=== PATIENT | male | born 1940 | race Caucasian/White ===

== ENCOUNTER 2020-03-11 11:27 | Inpatient (IN) | payer OTHER, MEDICARE, SELFPAY ==
[2020-03-11] VITALS (9 sets, daily range): BP systolic 110–143; BP diastolic 61–80; PULSE 64–79; RESP 16–27; TEMP 36.3–36.7; O2SAT 89–95; BMI 30.9
--- NOTE | 2020-03-11 11:59 | XRR_ITS ---
PROCEDURE INFORMATION: Exam: XR Chest, 1 View Exam date and time: 03/11/2020 12:30 PM Age: 79 years old Clinical indication: Condition or disease; Other: CVA TECHNIQUE: Imaging protocol: XR of the chest Views: 1 view. COMPARISON: CR Chest 1 [place] [id number] 04/10/2019 5:21 AM FINDINGS: Lungs: COPD and interstitial prominence. Pleural space: Incomplete visualization of the right costophrenic angle. Pleural thickening without significant pleural effusion. Heart/Mediastinum: Valve replacement. No cardiomegaly. Bones/joints: Osteopenia and mild degenerative change. Median sternotomy. Other: Atrioventricular pacemaker. XR/XR chest 1V portable [id number] IMPRESSION: COPD, interstitial prominence, and pleural thickening.
--- NOTE | 2020-03-11 11:59 | CT_ITS ---
WS: [id number] CT HEAD NONCONTRAST HISTORY: cva TECHNIQUE: Contiguous axial imaging performed through the brain in 2.5 mm imaging. Bone and soft tiss ue windows. Sagittal and coronal reformats reviewed. All CT scans at [facility] use at ast one of these dose optimization techniques: automated exposure control; mA and/or kV adjustment pe r patient size (includes targeted exams where dose is matched to clinical indication); or iterative r econstruction. DLP: 1029.34 mGy.cm COMPARISON: 03/05/2018 No acute intracranial hemorrhage, midline shift or mass effect. Mild atrophy and mild chronic microvascular ischemic disease. Ventricles: Normal size with no hydrocephalus. Paranasal sinuses: As visualized are clear. Mastoid air cells: Well pneumatized. Calvarium and scalp: Skull is intact with no soft tissue edema or swelling. CT/CT head wo con* [id number] IMPRESSION: 1. No acute intracranial hemorrhage or edema. 2. Mild atrophy and mild chronic microvascular ischemic disease.
--- NOTE | 2020-03-11 12:11 | ECG_ITS ---
[facility] Test Date: 2020-03-11 Pat Name: Liu Murrell Department: Room: Gender: Male [employer] Commander: Irene : 1940 Requested By: Krysta Peraza Order Number: [id number] Bret MD: Louise Bernard M.D. Measurements Intervals [place] Rate: 71 P: 94 [place]: 202 QRS: -54 QRSD: 186 T: 108 QT: 453 QTc: 493 Interpretive Statements ELECTRONIC VENTRICULAR PACEMAKER MARKED ST ELEVATION, CONSIDER LATERAL INJURY [MARKED ST ELEVATION W/O NORMALLY INFLECTED T WAVE IN I/aVL/V5/V6] ACUTE IL Compared to ECG 04/10/2019 04:46:12 ST (T wave) deviation now present Myocardial infarct finding now present Electronically Signed On 03-11-2020 21:42:05 CDT by Louise Bernard M.D. [email or web address] [email or web address]/[id number]
--- NOTE | 2020-03-11 12:15 | ED_ITS ---
HPI - Neuro Symptoms/Deficit General: Chief Complaint: Neuro Symptoms/Deficit Stated Complaint: poss stroke last week Time Seen by Provider: 03/11/20 11:59 Source: patient Mode of arrival: ambulatory Limitations: no limitations History of Present Illness: HPI Narrative: 79-year-old male who states over the last week he has had some difficulty with his vision along with left-sided numbness and some weakness in his left leg. He states he is also had episodes of diaphoresis. He states his symptoms currently are better. Denies any worsening improving factors. He denies any pain currently. Associated symptoms: Deny chest pain, nausea or vomiting Review of Systems Const: Denies: fever(s), chills, body aches or change in appetite Eyes: Denies: blurry vision or eye discomfort ENMT: Denies: throat pain or dental pain Card: Denies: chest pain Resp: Denies: dyspnea GI: Denies: abdominal pain, nausea, vomiting or diarrhea : Denies: dysuria Musc: Denies: neck pain or back pain Skin/Breast: Denies: rash Neuro: Reports: weakness in extremities Psych: Denies: depression Elvin/Lymph: Denies: easy bruising All/Imm: Denies: urticaria Physical Exam Const: COMMON NORMALS: no acute distress, patient oriented x3 and healthy appearing HENMT: COMMON NORMALS: normocephalic and atraumatic HEAD & SCALP: normocephalic and atraumatic Eye: COMMON NORMALS: Equal, round and reactive pupils present and EOMs intact bilaterally PUPIL: Yes Equal, round and reactive pupils present Neck/C-Spine: COMMON NORMALS: full ROM and supple Chest: COMMONS NORMALS: normal inspection of the chest and normal palpation of entire chest wall Resp: COMMON NORMALS: normal respiratory effort, No retractions, No use of accessory muscles and clear to auscultation bilaterally AUSCULTATION: clear to auscultation bilaterally Cardio: COMMON NORMALS: regular rate, regular rhythm and No murmurs present (Cardio) RATE: regular rate RHYTHM: regular rhythm GI: COMMON NORMALS: Normal to inspection, nondistended, normoactive bowel sounds present, Soft to palpation, non-tender and no masses PALPATION: Yes Soft to palpation Extremity: COMMON NORMALS: normal to inspection and full ROM Neuro: COMMON NORMALS: patient oriented x3, moves all extremities and no focal motor deficits Psych: COMMON NORMALS: mental status grossly normal, Normal thought process present and cooperative THOUGHT PROCESS: Normal thought process present Skin: COMMON NORMALS: no rashes or lesions noted and no wounds GENERAL SKIN EXAM: no rashes or lesions noted Course Vital Signs: Vital signs: Vital Signs Temperature 98.0 F 03/11/20 11:49 Pulse Rate 68 03/11/20 15:39 Respiratory Rate 19 H 03/11/20 15:39 Blood Pressure 120/77 03/11/20 15:39 Pulse Oximetry 92 03/11/20 15:39 MDM - Neuro Symptoms/Deficit MDM Narrative: Medical decision making narrative: Patient presents here with shortness of breath and is requiring 3 L of oxygen here to keep his saturation above 90%. Patient also has very vague neuro complaints. Patient CT chest along with CT head are normal. I spoke to hospitalist Dr. Morales who is admitting. Will COVID test. Patient has no signs of pneumonia. Lab Data: Labs: Lab Results 03/11/20 03/11/20 03/11/20 Range/Units 12:08 12:08 12:08 WBC 9.8 (4.0-10.0) 10^3/ uL RBC 5.95 H (4.1-5.3) 10^6/u L Hgb 16.7 H (11.7-16.6) g/dL Hct 52.8 H (42.0-52.0) % MCV 88.7 (80-94) fL MCH 28.1 (28.0-34.0) pg MCHC 31.6 (30.0-36.0) g/dL RDW 13.7 (12.1-15.1) % Plt Count 299 (130-400) 10^3/c mm MPV 10.2 (7.4-10.4) fL Neut % (Auto) 61.4 % Lymph % (Auto) 27.2 % Gordon % (Auto) 8.6 % Eos % (Auto) 2.1 % Baso % (Auto) 0.5 % Neut # (Auto) 6.0 (1.8-7.7) 10^3/u L Lymph # (Auto) 2.7 (0.8-4.8) 10^3/u L Gordon # (Auto) 0.9 (0.2-0.9) 10^3/u L Eos # (Auto) 0.2 (0.0-0.8) 10^3/u L Baso # (Auto) 0.1 (0.0-0.1) 10^3/u L Nucleated RBC % (a uto) 0 % Nucleated RBCs # 0.0 /100WBC PT 30.70 H (10.5-13.3) SECO NDS INR 2.82 H (0.8-1.2) Sodium 137 (136-145) mmol/L Potassium 4.6 (3.5-5.1) mmol/L Chloride 98 (98-107) mmol/L Carbon Dioxide 28 (22-29) mmol/L Anion Gap 15.6 (5-19) BUN 20 (8-23) mg/dL Creatinine 1.5 H (0.7-1.2) mg/dL Glucose 87 (65-115) mg/dL Calculated Osmolal ity 280 L (285-295) mOsm/k g Calcium 9.7 (8.5-10.5) mg/dL Total Bilirubin 0.7 (0.15-1.2) mg/dL AST 27 (0-40) U/L ALT 17 (0-41) U/L Alkaline Phosphata se 68 (40-130) IU/L Troponin T Baselin e (0-15) ng/L Troponin T 120 Min sam (0-15) ng/L Delta Troponin T (0-10) ABS# Total Protein 7.6 (6.6-8.7) g/dL Albumin 4.4 (3.5-5.2) g/dL Globulin 3.2 (1.3-4.6) g/dL Urine Color (Yellow) Urine Appearance (CLEAR) Urine pH (5-7) Ur Specific Gravit y (1.005-1.030) Urine Protein (Negative) Urine Glucose (UA) (Normal) Urine Ketones (Negative) Urine Blood (Negative) Urine Nitrate (Negative) Urine Bilirubin (NEGATIVE) Urine Urobilinogen (Negative) mg/dL Ur Leukocyte Reyna ase (Negative) Urine RBC (0-2) /hpf Urine WBC (0-5) /hpf Ur Squamous Epith Cells (0-5) Amorphous Sediment Urine Bacteria (NONE) 03/11/20 03/11/20 03/11/20 Range/Units 12:08 12:55 14:09 WBC (4.0-10.0) 10^3/ uL RBC (4.1-5.3) 10^6/u L Hgb (11.7-16.6) g/dL Hct (42.0-52.0) % MCV (80-94) fL MCH (28.0-34.0) pg MCHC (30.0-36.0) g/dL RDW (12.1-15.1) % Plt Count (130-400) 10^3/c mm MPV (7.4-10.4) fL Neut % (Auto) % Lymph % (Auto) % Gordon % (Auto) % Eos % (Auto) % Baso % (Auto) % Neut # (Auto) (1.8-7.7) 10^3/u L Lymph # (Auto) (0.8-4.8) 10^3/u L Gordon # (Auto) (0.2-0.9) 10^3/u L Eos # (Auto) (0.0-0.8) 10^3/u L Baso # (Auto) (0.0-0.1) 10^3/u L Nucleated RBC % (a uto) % Nucleated RBCs # /100WBC PT (10.5-13.3) SECO NDS INR (0.8-1.2) Sodium (136-145) mmol/L Potassium (3.5-5.1) mmol/L Chloride (98-107) mmol/L Carbon Dioxide (22-29) mmol/L Anion Gap (5-19) BUN (8-23) mg/dL Creatinine (0.7-1.2) mg/dL Glucose (65-115) mg/dL Calculated Osmolal ity (285-295) mOsm/k g Calcium (8.5-10.5) mg/dL Total Bilirubin (0.15-1.2) mg/dL AST (0-40) U/L ALT (0-41) U/L Alkaline Phosphata se (40-130) IU/L Troponin T Baselin e 16 H (0-15) ng/L Troponin T 120 Min sam 15.99 H (0-15) ng/L Delta Troponin T -0.01 L (0-10) ABS# Total Protein (6.6-8.7) g/dL Albumin (3.5-5.2) g/dL Globulin (1.3-4.6) g/dL Urine Color Yellow (Yellow) Urine Appearance Clear (CLEAR) Urine pH 6.0 (5-7) Ur Specific Gravit y 1.010 (1.005-1.030) Urine Protein Neg (Negative) Urine Glucose (UA) Norm (Normal) Urine Ketones Negative (Negative) Urine Blood 2+ H (Negative) Urine Nitrate Negative (Negative) Urine Bilirubin Neg (NEGATIVE) Urine Urobilinogen Norm (Negative) mg/dL Ur Leukocyte Reyna ase Negative (Negative) Urine RBC 0-4 H (0-2) /hpf Urine WBC Rare (0-5) /hpf Ur Squamous Epith Cells 0-4 H (0-5) Amorphous Sediment Not Reportable Urine Bacteria Trace (NONE) Imaging Data^: CXR: Attestation: I personally reviewed and interpreted this imaging study as follows: Radiologist's impression: [place] [address] XRay Report Signed Patient: Liu Murrell Unit #: [id number] : 1940 Age/Sex: 79 / M ADM Date: 03/11/20 Loc: ER Room/Bed: Attending Dr: Ordering Provider/Ordering MD: Krysta Peraza MD Date of Service: 03/11/20 Procedure(s): XR chest 1V portable [id number] Accession Number(s): [id number] Report Number: [id number] PROCEDURE INFORMATION: Exam: XR Chest, 1 View Exam date and time: 03/11/2020 12:30 PM Age: 79 years old Clinical indication: Condition or disease; Other: CVA TECHNIQUE: Imaging protocol: XR of the chest Views: 1 view. COMPARISON: CR Chest 1 [place] [id number] 04/10/2019 5:21 AM FINDINGS: Lungs: COPD and interstitial prominence. Pleural space: Incomplete visualization of the right costophrenic angle. Pleural thickening without significant pleural effusion. Heart/Mediastinum: Valve replacement. No cardiomegaly. Bones/joints: Osteopenia and mild degenerative change. Median sternotomy. Other: Atrioventricular pacemaker. XR/XR chest 1V portable [id number] IMPRESSION: COPD, interstitial prominence, and pleural thickening. CT Head: Attestation: I personally reviewed and interpreted this imaging study as follows: Radiologist's impression: [address] [address] [address] Scan Report Signed Patient: Liu Murrell Unit #: [id number] : 1940 Age/Sex: 79 / M ADM Date: 03/11/20 Loc: ER Room/Bed: Attending Dr: Ordering Provider/Ordering MD: Krysta Peraza MD Date of Service: 03/11/20 Procedure(s): CT head wo con* [id number] Accession Number(s): [id number] Report Number: [id number] WS: [id number] CT HEAD NONCONTRAST HISTORY: cva TECHNIQUE: Contiguous axial imaging performed through the brain in 2.5 mm imaging. Bone and soft tissue windows. Sagittal and coronal reformats reviewed. All CT scans at [facility] use at least one of these dose optimization techniques: automated exposure control; mA and/or kV adjustment per patient size (includes targeted exams where dose is matched to clinical indication); or iterative reconstruction. DLP: 1029.34 mGy.cm COMPARISON: 03/05/2018 No acute intracranial hemorrhage, midline shift or mass effect. Mild atrophy and mild chronic microvascular ischemic disease. Ventricles: Normal size with no hydrocephalus. Paranasal sinuses: As visualized are clear. Mastoid air cells: Well pneumatized. Calvarium and scalp: Skull is intact with no soft tissue edema or swelling. CT/CT head wo con* [id number] IMPRESSION: 1. No acute intracranial hemorrhage or edema. 2. Mild atrophy and mild chronic microvascular ischemic disease. CT Chest: Radiologist's impression: [address] [address] [address] Scan Report Signed Patient: Liu Murrell Unit #: [id number] : 1940 Age/Sex: 79 / M ADM Date: 03/11/20 Loc: ER Room/Bed: Attending Dr: Ordering Provider/Ordering MD: Krysta Peraza MD Date of Service: 03/11/20 Procedure(s): CT angio chest PE protcl [id number] Accession Number(s): [id number] Report Number: [id number] WS: [id number] CT CHEST ANGIOGRAPHY WITH REFORMATS HISTORY: sob TECHNIQUE: Contiguous axial images are obtained through the chest during arterial injection of intravenous contrast. Images are reconstructed to evaluate the pulmonary arteries. MIP imaging also reviewed. All CT scans at [facility] use at least one of these dose optimization techniques: automated exposure control; mA and/or kV adjustment per patient size (includes targeted exams where dose is matched to clinical indication); or iterative reconstruction. CONTRAST: Visipaque 320; 95 mL IV. DLP: 1020.82 mGy.cm COMPARISON: 03/11/2018 Very good opacification of the pulmonary arteries. No filling defects or pulmonary embolism. Pulmonary artery size is normal. Mild atherosclerosis aorta with no aneurysm. Moderate enlargement of the LEFT heart chambers. No pericardial or pleural effusion. Chronic emphysema. Partially calcified pleural thickening at the RIGHT lung base was also noted on 03/11/2018. May be related to prior asbestosis exposure. Areas of chronic atelectasis at the lung bases. Prior cholecystectomy. No adrenal mass. Prior median sternotomy with valve replacement aortic valve. Dual lead LEFT pacer. CT/CT angio chest PE protcl [id number] IMPRESSION: 1. No pulmonary embolism. 2. 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 3. Coronary artery calcifications and mild atherosclerosis aorta. 4. Pleural plaque with soft tissue is stable at the RIGHT lower thorax. 5. Prior cholecystectomy. EKG Data^: EKG 1: Attestation: I personally reviewed and interpreted this EKG as follows: EKG interpretation date: 03/11/20 EKG interpretation time: 12:25 Interpretation: paced rhythm no st or t wave abnormalities qrs 186 qtc 475 Discharge Plan Discharge Patient Disposition: Home, Self-Care Clinical Impression: Transient cerebral ischemia, Dyspnea Condition: Stable Prescriptions: No Action aspirin [Adult Low Dose Aspirin] 81 mg tablet,delayed release (DR/EC) 81 mg PO DAILY RF: 0 metoprolol tartrate 100 mg tablet 50 mg PO BID RF: 0 furosemide 40 mg tablet 40 mg PO DAILY RF: 0 warfarin 5 mg tablet 5 mg PO DIRECTED RF: 0 levetiracetam [Keppra] 750 mg tablet 750 mg PO BID RF: 0 Referrals: Dakota Reynoso [Primary Care Provider] - Coding Level of Care Code ED Corporate Meeting Planner for Chg Fwd Exam Comprehensive
[2020-03-11 12:18] LABS: Basophils # 0.1 10^3/uL (0.0-0.1); Basophils % 0.5 %; Eosinophils # 0.2 10^3/uL (0.0-0.8); Eosinophils % 2.1 %; Hematocrit 52.8 % (42.0-52.0); Hemoglobin 16.7 g/dL (11.7-16.6); Lymphocytes # 2.7 10^3/uL (0.8-4.8); Lymphocytes % 27.2 %; Mean Corpuscular HGB Conc 31.6 g/dL (30.0-36.0); Mean Corpuscular Hemoglobin 28.1 pg (28.0-34.0); Mean Corpuscular Volume 88.7 fL (80-94); Mean Platelet Volume 10.2 fL (7.4-10.4); Monocytes # 0.9 10^3/uL (0.2-0.9); Monocytes % 8.6 %; Neutrophils % 61.4 %; Nucleated Red Blood Cells % 0 %; Platelet Count 299 10^3/cmm (130-400); Red Blood Count 5.95 10^6/uL (4.1-5.3); Red Cell Distribution Width 13.7 % (12.1-15.1); White Blood Count 9.8 10^3/uL (4.0-10.0)
[2020-03-11 12:28] LABS: INR 2.82 (0.8-1.2)
[2020-03-11 12:36] LABS: Alanine Aminotransferase 17 U/L (0-41); Albumin Level 4.4 g/dL (3.5-5.2); Alkaline Phosphatase 68 IU/L (40-130); Anion Gap 15.6 (5-19); Blood Urea Nitrogen 20 mg/dL (8-23); Calcium 9.7 mg/dL (8.5-10.5); Carbon Dioxide 28 mmol/L (22-29); Chloride 98 mmol/L (98-107); Globulin 3.2 g/dL (1.3-4.6); Glucose 87 mg/dL (65-115); Osmolality Calculated 280 mOsm/kg (285-295); Potassium 4.6 mmol/L (3.5-5.1); Sodium 137 mmol/L (136-145); Total Bilirubin 0.7 mg/dL (0.15-1.2); Total Protein 7.6 g/dL (6.6-8.7)
[2020-03-11 12:38] LABS: Troponin(5th) Baseline 16 ng/L (0-15)
[2020-03-11 12:39] LABS: Aspartate Amino Transferase 27 U/L (0-40)
--- NOTE | 2020-03-11 13:40 | CT_ITS ---
WS: [id number] CT CHEST ANGIOGRAPHY WITH REFORMATS HISTORY: sob TECHNIQUE: Contiguous axial images are obtained through the chest during arterial injection of intrav enous contrast. Images are reconstructed to evaluate the pulmonary arteries. MIP imaging also reviewe d. All CT scans at [facility] use at least one of these dose optimization techniques: aut omated exposure control; mA and/or kV adjustment per patient size (includes targeted exams where dose is matched to clinical indication); or iterative reconstruction. CONTRAST: Visipaque 320; 95 mL IV. DLP: 1020.82 mGy.cm COMPARISON: 03/11/2018 Very good opacification of the pulmonary arteries. No filling defects or pulmonary embolism. Pulmonar y artery size is normal. Mild atherosclerosis aorta with no aneurysm. Moderate enlargement of the LEF T heart chambers. No pericardial or pleural effusion. Chronic emphysema. Partially calcified pleural thickening at the RIGHT lung base was also noted on 03/11/2018. May be related to prior asbestosis expo sure. Areas of chronic atelectasis at the lung bases. Prior cholecystectomy. No adrenal mass. Prior median sternotomy with valve replacement aortic valve. Dual lead LEFT pacer. CT/CT angio chest PE protcl [id number] IMPRESSION: 1. No pulmonary embolism. 2. 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 3. Coronary artery calcifications and mild atherosclerosis aorta. 4. Pleural plaque with soft tissue is stable at the RIGHT lower thorax. 5. Prior cholecystectomy.
[2020-03-11 13:42] LABS: Add Urine Culture? No; Add Urine Microscopic? YES; Bacteria Urine TRACE; Bilirubin Urine Neg (NEGATIVE); Blood Urine 2+ (Negative); Glucose Urine UA Norm (Normal); Ketones Urine Negative (Negative); Leukocyte Esterase Urine Negative (Negative); Nitrate Urine Negative (Negative); Protein Urine Neg (Negative); RBC Urine 0-4 /hpf (0-2); Squamous Epithelial Cell Urine 0-4 (0-5); Urine Appearance Clear (CLEAR); Urine Color Yellow (Yellow); Urobilinogen Urine Norm (Negative); WBC Urine RARE /hpf (0-5)
--- NOTE | 2020-03-11 14:11 | ECG_ITS ---
[facility] Test Date: 2020-03-11 Pat Name: Liu Murrell Department: Room: Gender: Male Manager Balance: : 1940 Requested By: Krysta Peraza Order Number: [id number] Bret MD: Louise Bernard M.D. Measurements Intervals [place] Rate: 68 P: 56 FL: 226 QRS: -61 QRSD: 180 T: 108 QT: 473 QTc: 505 Interpretive Statements ELECTRONIC VENTRICULAR PACEMAKER ABNORMAL RHYTHM ECG Compared to ECG 03/11/2020 12:25:22 ST (T wave) deviation no longer present Myocardial infarct finding no longer present Electronically Signed On 03-11-2020 21:46:41 CDT by Louise Bernard M.D. [id number]
[2020-03-11] MEDS: hydrocortisone 100 mg/2 mL SDV IVP (14:20)
[2020-03-11] MEDS: diphenhydrAMINE 50 mg/mL SDV 1mL IVP (14:20)
[2020-03-11 14:35] LABS: Troponin 5 2HR 15.99 ng/L (0-15)
[2020-03-11 14:38] LABS: Troponin 5 2HR Delta -0.01 ABS# (0-10)
[2020-03-11] MEDS: iodixanol 320 mg/mL 100mL Btl IV (15:08)
[2020-03-11] MEDS: aspirin 81 mg Chew Tablet 324 MG PO (15:21)
--- NOTE | 2020-03-11 16:15 | P.HP_ITS ---
Providers/Chief Complaint Primary Care Provider: Dakota Reynoso Chief Complaint: poss stroke last week History of Present Illness Liu Murrell is a 79 year old male who presented to the emergency department with history of illness for at least the last week. He has had occasional slurred speech. reports he seems to favor the left side by walking on his heel. She denies that he drags the foot. Patient reports his biggest concern was dizziness when he gets up and moves. She reports he looks like he is short of breath and very fatigued. Although he denies fevers he reports he has had quite a bit of diaphoresis. He reports no significant cough. He has had no chest discomfort. He reports no facial asymmetry, headache, hand weakness. Equivocal numbness in face. He has had some nausea. No vomiting or diarrhea. No ill family contacts. Returned from [place] about a week ago. No recent seizures. In the emergency department he was found to have significant hypoxia, requiring 4 L of oxygen to maintain a saturation slightly above 92%. Review of Systems General: Reports: 10 or more systems reviewed and unremarkable except in HPI and below Const: Reports: diaphoresis; Denies: fever(s) or chills Eyes: Denies: change in vision ENMT: Denies: throat pain Card: Denies: chest pain Resp: Reports: dyspnea; Denies: productive cough or non-productive cough GI: Reports: nausea; Denies: abdominal pain or vomiting : Denies: flank pain Musc: Denies: neck pain Skin/Breast: Denies: rash Neuro: Denies: headache(s) Psych: Denies: anxiety Endo: Denies: polyuria Elvin/Lymph: Denies: easy bruising Medications/Allergies Home Medications Medication Instructions Recorded Confirmed Last Taken Type aspirin 81 mg tablet,delayed 81 mg PO DAILY 10/23/19 03/11/20 03/11/20 History release furosemide 40 mg tablet 40 mg PO DAILY 10/23/19 03/11/20 03/11/20 History levetiracetam 750 mg tablet 750 mg PO BID 10/23/19 03/11/20 03/11/20 History metoprolol tartrate 100 mg tablet 50 mg PO BID tab 10/23/19 03/11/20 03/11/20 History warfarin 5 mg tablet 5 mg PO DIRECTED tab 10/23/19 03/11/20 03/11/20 History Allergies Allergy/AdvReac Type Severity Reaction Status Date / Time No Known Allergies Allergy Verified 03/11/20 14:19 PFSH Acute PFSH: Medical History (Updated 03/11/20 @ 16:40 by Juanjo Morales MD) CHF (congestive heart failure) HTN (hypertension) Seizure disorder Surgical History (Updated 03/11/20 @ 16:33 by Juanjo Morales MD) S/P aortic valve replacement S/P cardiac pacemaker procedure S/P hernia surgery Family History (Updated 03/11/20 @ 16:33 by Juanjo Morales MD) Other CAD (coronary artery disease) Social History (Updated 03/11/20 @ 16:33 by Juanjo Morales MD) Smoking and tobacco status: former smoker Alcohol intake: never Substance/Drug Use: never Vitals/I&O/Wt Last Vital Signs Temp 98.0 F 03/11/20 11:49 Pulse 68 03/11/20 15:39 Resp 19 H 03/11/20 15:39 BP 120/77 03/11/20 15:39 Pulse Ox 92 03/11/20 15:39 Weight last 48 hrs Weight 115.212 kg Physical Exam Narrative: EXAM NARRATIVE: General exam is an adult male, who appears tired but does not appear in any distress HEENT: Pupils equally round. Oropharynx clear. Neurologic: No obvious focal deficits. Cranial nerves II through XII grossly intact. No palmar drift. No facial asymmetry. Neck is supple no lymphadenopathy or thyromegaly Cardiovascular regular rate and rhythm without murmur, no S3 or S4 Lungs clear no wheezing or crackles Abdomen is soft with positive bowel sounds. No obvious organomegaly was deferred Extremities no cyanosis clubbing nor edema. Pulses intact Skin no rash Data : 03/11/20 12:08 03/11/20 12:08 Other data: INR 2.82. ABG demonstrates pH of 7.41, PCO2 40, PO2 78. LFTs are within normal limits. Troponin is 16. Urinalysis demonstrates 0-4 reds, rare whites CTA chest with no evidence of pulmonary embolism, pleural plaque right lower thorax. Head CT no acute Chest x-ray COPD EKG demonstrates paced rhythm, ventricular A&P Assessment and plan (1) Respiratory failure: Consistent with acute hypoxic respiratory failure. Etiology unknown. Check blood culture, influenza a and B, Covid 19 testing. Appropriate precautions to be taken until results known. CTA negative No obvious pneumonia Will initiate doxycycline, nebs secondary to past history of smoking and possible bronchitis. Status: Acute (2) Dizziness: Telemetry. Continue aspirin. Check carotid duplex. May be related to hypoxia Status: Acute (3) Diaphoresis: See investigations above Status: Acute Additional A&P Information History of aortic valve replacement. Currently therapeutic on Coumadin. Goal INR is 2.5-3.5. History of CHF, unspecified type. Check BNP. Check echocardiogram. 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
[2020-03-11 16:22] LABS: ABG PCO2 40.2 mmHg (35-45); ABG PH Result 7.41 (7.35-7.45); Arterial Blood Gas Hematocrit 52.4 % (42-52); Blood Gas Operator Identificat amh; Blood Gas Sample Site Brachial, left; Blood Gas Sample Type Arterial; HCO3 ABG 25.7 mmol/L (22-26); Oxygen Device NC; PO2 ABG 78.2 mmHg (80.0-100.0)
--- NOTE | 2020-03-11 18:11 | ECG_ITS ---
[facility] Test Date: 2020-03-11 Pat Name: Liu Murrell Department: Room: 102 Gender: Male Wellness Nurse Rn: MARY LUONG: 1940 Requested By: Krysta Peraza Order Number: [id number] Bret MD: Louise Bernard M.D. Measurements Intervals [place] Rate: 75 P: 0 CA: 179 QRS: -40 QRSD: 191 T: 154 QT: 480 QTc: 539 Interpretive Statements ELECTRONIC ATRIAL PACEMAKER ELECTRONIC VENTRICULAR PACEMAKER ABNORMAL RHYTHM ECG WARNING: DATA QUALITY MAY AFFECT INTERPRETATION Compared to ECG 03/11/2020 14:17:04 No significant changes Electronically Signed On 03-11-2020 21:47:23 CDT by Louise Bernard M.D. [id number]
[2020-03-11 18:26] LABS: Troponin 5 6HR 14.58 ng/L (0-15)
[2020-03-11 18:34] LABS: Troponin 5 6HR Delta -1.42 ng/L (0-12)
[2020-03-11 18:37] LABS: Influenza A by IFA Negative (Negative); Influenza B by IFA Negative (Negative)
[2020-03-11] MEDS: doxycycline 100 mg Tablet PO (20:17)
--- NOTE | 2020-03-11 20:19 | PC.NURSE ---
Patient arrived from ER at 191 and placed on telemetry. Patient is alert and oriented. Patient oriented to the room and call light is within reach, bed in low position, side rails x2. Will continue to monitor.
[2020-03-11] MEDS: albuterol 8 gm MDI 2 PUFF INHALATION (20:43)
[2020-03-11 23:41] LABS: NT Pro B Type Natriuretic Pept 210 pg/mL (0-450); Thyroid Stimulating Hormone 1.78 uIU/mL (0.27-4.20)
[2020-03-11 23:54] LABS: Add On to Lab Order(s) Added
[2020-03-12] VITALS (13 sets, daily range): BP systolic 113–146; BP diastolic 65–88; PULSE 56–89; RESP 16–26; TEMP 36.3–36.8; O2SAT 93–97
[2020-03-12] MEDS: albuterol 8 gm MDI 2 PUFF INHALATION ×4 (03:14→20:04)
--- NOTE | 2020-03-12 05:34 | PC.NURSE ---
End of shift: Patient has had a uneventful shift. Patient remains alert and oriented. Patient is on 3L nasal cannula. Patient has rested off and on this shift. Will continue to monitor.
[2020-03-12 05:49] LABS: Basophils % 0.3 %; Eosinophils # 0.2 10^3/uL (0.0-0.8); Eosinophils % 1.6 %; Hemoglobin 15.9 g/dL (11.7-16.6); Lymphocytes # 2.6 10^3/uL (0.8-4.8); Lymphocytes % 25.9 %; Mean Corpuscular HGB Conc 31.2 g/dL (30.0-36.0); Mean Corpuscular Volume 89.9 fL (80-94); Mean Platelet Volume 10.2 fL (7.4-10.4); Monocytes % 9.8 %; Neutrophils # 6.2 10^3/uL (1.8-7.7); Neutrophils % 62.2 %; Nucleated Red Blood Cells % 0 %; Platelet Count 278 10^3/cmm (130-400); Red Blood Count 5.67 10^6/uL (4.1-5.3)
[2020-03-12 06:39] LABS: Anion Gap 13.1 (5-19); Blood Urea Nitrogen 23 mg/dL (8-23); Calcium 9.4 mg/dL (8.5-10.5); Carbon Dioxide 26 mmol/L (22-29); Chloride 102 mmol/L (98-107); Glucose 85 mg/dL (65-115); Osmolality Calculated 280 mOsm/kg (285-295); Potassium 4.1 mmol/L (3.5-5.1); Sodium 137 mmol/L (136-145)
[2020-03-12 06:45] LABS: INR 2.92 (0.8-1.2)
--- NOTE | 2020-03-12 07:00 | USCV_ITS ---
Liu Murrell Age: 79 Gender: M : 1940 Exam Date: 03/12/2020 16:41 Ordering Phys: Juanjo Morales MD Technologist: Catarina Medina Exam Location: [facility] [place] Indication: AO VALVE REPLACEMENT BP: 125 / 71 HR: 74 Rhythm: Sinus Technical Quality: Technically difficult study MEASUREMENTS (Male / Female) Normal Values 2D ECHO LV Diastolic Diameter PLAX 3.2 cm 4.2 - 5.9 / 3.9 - 5.3 cm LV Systolic Diameter PLAX 2.2 cm IVS Diastolic Thickness 1.8 cm 0.6 - 1.0 / 0.6 - 0.9 cm IVS Systolic Thickness 1.7 cm LVPW Diastolic Thickness 1.9 cm 0.6 - 1.0 / 0.6 - 0.9 cm LVPW Systolic Thickness 2.1 cm LVOT Diameter 2.0 cm LV Ejection Fraction 2D Teich 59.0 % LA Diameter 4.3 cm LA Width 3.0 cm LA Height 3.2 cm RA Width 3.1 cm RA Height 3.7 cm M-MODE LV Diastolic Diameter MM 5.9 cm 4.2 - 5.9 / 3.9 - 5.3 cm LV Systolic Diameter MM 3.9 cm LV Ejection Fraction MM Teich 62.6 % IVS Diastolic Thickness MM 1.9 cm 0.6 - 1.0 / 0.6 - 0.9 cm IVS Systolic Thickness MM 2.0 cm LVPW Diastolic Thickness MM 1.1 cm 0.6 - 1.0 / 0.6 - 0.9 cm LVPW Systolic Thickness MM 1.7 cm Aortic Annulus Diameter 2.7 cm LA Ao Ratio MM 1.3 MV E Point Septal Separation 2.2 cm DOPPLER AV Peak Velocity 172.0 cm/s LVOT Peak Velocity 115.0 cm/s AV Area Cont Eq vti 2.2 cm squared AV Area Cont Eq pk 2.2 cm squared MV Area PHT 3.3 cm squared Mitral E to A Ratio 1.4 MV E' Velocity 7.0 cm/s Mitral E to MV E' Ratio 16.9 Mitral E to LV E' Lateral Ratio 16.2 Mitral E to LV E' Septal Ratio 17.7 TR Peak Velocity 184.0 cm/s TR Peak Gradient 13.6 mmHg TV Peak E Velocity 80.0 cm/s Right Atrial Pressure 3.0 mmHg Pulmonary Artery Systolic Pressu 16.5 mmHg PV Peak Velocity 88.0 cm/s RV Acceleration Time 0.1 s RV Ejection Time 0.4 s RV AcT/ET 0.2 FINDINGS Left Ventricle Right Ventricle Right Atrium Left Atrium Mitral Valve Aortic Valve Tricuspid Valve Pulmonic Valve Pericardium Aorta CONCLUSIONS Please note that this is a limited study with suboptimal images therefore I am not able to see left ventricle cavity and valvular structures clearly 1-Probably left ventricle function is normal and estimated at 55% 2-Aortic valve is not well-visualized 3-Mitral valve appeared to be opening and closing fine without any significant stenosis or regurgitation 4-Tricuspid and pulmonic valve not well visualized 4-No pericardial effusion noted 5-There are no prior echocardiogram studies to compare. 6-If clinically indicated transesophageal echocardiogram will be a better modality to assess valvular or left ventricle structures Ana Lilia Baker MD (Electronically Signed) Final Date: 12 March 2020 19:08 S
--- NOTE | 2020-03-12 07:00 | USCV_ITS ---
HandyLiu purcell Age: 79 Gender: M : 1940 Exam Date: 03/12/2020 16:52 Ordering Phys: Juanjo Morales MD Technologist: Catarina Medina [place]am [place] [facility] [place]ication: TIA Risk Factors: Previous Vascular Surgery: Right Brachial BP: / Left Brachial BP: / Right Left Velocity (cm/s) Spectral Plaque Velocity (cm/s) Spectral Plaque Syst/Diast Broadening Syst/Diast Broadening 77.00/ 10.80 Prox CCA 99.50 / 13.40 94.30/ 16.20 Mid CCA 107.40/ 21.20 104.40/15.90 Distal CCA 117.40/ 14.50 36.60/ 8.40 Prox ICA 36.30 / 12.40 87.20/ 23.40 Mid ICA 61.80 / 17.40 67.50/ 16.90 Distal ICA 69.80 / 18.90 130.80 ECA 90.60 0.92 ICA/CCA 0.65 Retrograde Vertebral Antegrade 27.10/ 7.30 cm/s 40.70/ 6.50 cm/s Tri Subclavian Tri 67.40 44.30 FINDINGS Comparison: none available. No significant elevation of systolic or diastolic velocities. Minimal bilateral, intimal thickening with no elevation of velocity. Retrograde right vertebral artery. CONCLUSIONS Bilateral ICA stenosis less than 50%. Retrograde right vertebral artery. Consider stenosis proximal to the origin of the vertebral artery. Dr. Ligia Beckwith DO (Electronically Signed) Final Date: 13 March 2020 14:00 S
[2020-03-12] MEDS: doxycycline 100 mg Tablet PO ×2 (08:50→17:32)
[2020-03-12] MEDS: FUROsemide 40 mg Tablet PO (08:50)
[2020-03-12] MEDS: levETIRAcetam 500 mg Tablet 750 MG PO ×2 (08:51→17:32)
[2020-03-12] MEDS: aspirin 81 mg EC Tablet PO (08:52)
[2020-03-12] MEDS: metoprolol tartrate 50 mg Tablet PO ×2 (08:52→17:32)
--- NOTE | 2020-03-12 12:20 | PC.CHAP ---
Pastoral Care Encounter/Spiritual Assessment Type of Contact [] Declined ceramist visit [] Patient/Family/Request visit [] Outpatient visit [] Follow-up visit [] Physician referral [] Code/Alert [] Routine visit [] Staff referral [] Actively dying [] Patient sleeping [] Family support [] [] Out of room [] Palliative care [] [] Receiving care in room [] Pre-surgical visit [] Trauma [] Long length of stay [] ICU visit [x] Other: Covid test Isolatrion Relational/Emotional Strength [] Patient feels connected with others/family/visitors/staff [] Distress [] Loneliness/isolation [] Abandonment Spirituality of Patient [] Person of Rosemary [] Attends Faith of their Rosemary [] Believes in Prayer [] Reads Bible or Temple materials [] There are Spiritual issues to be addressed Money Order Clerk Interventions [] Prayer [] Active listening [] Non-anxious presence [] Spiritual/emotional support [] Crisis/trauma care [] Spiritual counseling [] Bereavement support [] Provided bereavement packet [] Provided Bible/devotional materials [] Provided toy/stuffed animal, coloring book to patient or family member [] Provided Communion [] Anointing/[place] [] Salvation [] Completed spiritual assessment [] Other: Impact on Illness or Injury [] Angry [] Fearful [] Anxious [] Often cries [] Exhaustion [] Unable to work [] Unable to attend protestant [] Unable to walk/stand [] Unable to read [] Unable to drive [] Unable to eat/drink [] Unable to sleep [] Unable to be with family [] Patient intubated [] Other: Summary Covid test Isolatrion Time spent with patient 5 mins
--- NOTE | 2020-03-12 14:19 | XRR_ITS ---
PROCEDURE INFORMATION: Exam: XR Chest, 1 View Exam date and time: 03/12/2020 5:32 PM Age: 79 years old Clinical indication: Other: Hypoxia; Prior surgery; Surgery type: Pacemaker TECHNIQUE: Imaging protocol: XR of the chest Views: 1 view. COMPARISON: CR XR chest 1V portable [id number] 03/11/2020 12:39 PM FINDINGS: Lungs: Mild atelectasis suspected within the left retrocardiac region. Lungs are otherwise well aerated. Pleural space: Unremarkable. No pleural effusion. No pneumothorax. Heart/Mediastinum: cardiac silhouette is enlarged. Prior sternotomy. Vasculature: Pacemaker is present via a left subclavian approach. Bones/joints: See Heart/Mediastinum finding. XR/XR chest 1V portable [id number] IMPRESSION: Mild atelectasis suspected within the left retrocardiac region. Lungs are otherwise well aerated.
--- NOTE | 2020-03-12 14:20 | PM.PN ---
Subjective Subjective: Interval history: Liu reports he feels a lot better. No slurred speech anymore. I was just called by the nurse to see that his blood cultures are growing gram-positive cocci. Medications: Reviewed: Yes Vitals/I&O/Wt Last Vital Signs Temp 97.8 F 03/12/20 10:40 Pulse 60 03/12/20 10:40 Resp 18 03/12/20 10:40 BP 146/88 03/12/20 10:40 Pulse Ox 96 03/12/20 10:40 03/11/20 03/12/20 03/12/20 22:59 06:59 14:59 Intake Total 240 / 240 450 / 690 1600 / 1600 Output Total 200 / 200 800 / 800 Balance 240 / 240 250 / 490 800 / 800 Weight last 48 hrs Weight 115.212 kg Physical Exam Narrative: EXAM NARRATIVE: General exam no apparent distress Cardiovascular regular in rhythm without murmur Lungs clear Abdomen is soft, positive bowel sounds Extremities no cyanosis clubbing or edema Data : 03/12/20 04:49 03/12/20 04:49 Micro: Microbiology 03/11/20 16:50 Blood Culture - Preliminary Blood Gram positive cocci 03/11/20 16:55 Blood Culture - Preliminary Blood Gram positive cocci A&P Assessment and plan (1) Respiratory failure: Consistent with acute hypoxic respiratory failure. Etiology unknown. Influenza a and B are negative. Blood cultures now positive. Covid 19 testing is pending. CTA negative for pulmonary embolism. No obvious pneumonia on x-rays. Doxycycline was initiated upon admission for concern of bronchitis, COPD. Tick panel was ordered at that time secondary to hard to define illness associated with diaphoresis. Tick panel is pending. Status: Acute (2) Dizziness: Resolved. Continue telemetry currently. Awaiting echocardiogram and carotid duplex. Status: Acute (3) Diaphoresis: See investigations above. May be related to bacteremia as he now has gram-positive cocci in his blood. Status: Acute Additional A&P Information History of aortic valve replacement. Currently therapeutic on Coumadin. Goal INR is 2.5-3.5. Now with blood culture positive, concern would exist for endocarditis. Repeat blood culture. Initiate vancomycin. Check sedimentation rate and CRP tomorrow. History of CHF, unspecified type. BNP and troponin not significantly elevated. Awaiting echocardiogram.. History of seizure disorder, continue Keppra Full code Coumadin will suffice for DVT prophylaxis Attestations Medical Necessity Statement*: Needs continued hospitalization for IV antibiotics secondary to bacteremia. 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
[2020-03-12] MEDS: warfarin 5 mg Tablet PO (15:04)
[2020-03-12 15:08] LABS: Coronavirus Lab Test PTC NOT DETECTED
--- NOTE | 2020-03-12 20:52 | PC.NURSE ---
Received report from AMANDA Bergman at [id number]. Patient resting in bed. Vancomycin running as ordered. Patient denies needs or discomforts at this time. No distress observed.
[2020-03-13] VITALS (12 sets, daily range): BP systolic 118–139; BP diastolic 64–78; PULSE 55–70; RESP 17–31; TEMP 36.4–36.8; O2SAT 90–98
[2020-03-13] MEDS: albuterol 8 gm MDI 2 PUFF INHALATION ×4 (02:31→20:12)
[2020-03-13 04:40] LABS: Basophils % 0.3 %; Eosinophils # 0.3 10^3/uL (0.0-0.8); Hematocrit 48.4 % (42.0-52.0); Hemoglobin 14.9 g/dL (11.7-16.6); Lymphocytes # 2.7 10^3/uL (0.8-4.8); Lymphocytes % 31.5 %; Mean Corpuscular HGB Conc 30.8 g/dL (30.0-36.0); Mean Corpuscular Hemoglobin 28.1 pg (28.0-34.0); Mean Corpuscular Volume 91.3 fL (80-94); Mean Platelet Volume 10.4 fL (7.4-10.4); Monocytes # 0.7 10^3/uL (0.2-0.9); Monocytes % 8.5 %; Neutrophils # 4.8 10^3/uL (1.8-7.7); Neutrophils % 56.5 %; Nucleated Red Blood Cells % 0 %; Platelet Count 271 10^3/cmm (130-400); Red Cell Distribution Width 13.9 % (12.1-15.1); White Blood Count 8.6 10^3/uL (4.0-10.0)
[2020-03-13 05:10] LABS: Anion Gap 13.5 (5-19); Blood Urea Nitrogen 26 mg/dL (8-23); Calcium 8.9 mg/dL (8.5-10.5); Carbon Dioxide 30 mmol/L (22-29); Chloride 100 mmol/L (98-107); Glucose 93 mg/dL (65-115); Osmolality Calculated 285 mOsm/kg (285-295); Potassium 4.5 mmol/L (3.5-5.1); Sodium 139 mmol/L (136-145)
[2020-03-13 05:56] LABS: INR 3.05 (0.8-1.2)
--- NOTE | 2020-03-13 08:12 | PM.PN ---
Subjective Subjective: Interval history: Liu reports he is feeling better. No particular concerns today. No slurred speech. No chest pain. Discussed with him in detail his positive blood culture. Medications: Reviewed: Yes Vitals/I&O/Wt Last Vital Signs Temp 97.7 F 03/13/20 07:14 Pulse 61 03/13/20 07:14 Resp 26 H 03/13/20 07:14 BP 139/70 03/13/20 07:14 Pulse Ox 93 03/13/20 07:14 03/12/20 03/13/20 03/13/20 22:59 06:59 14:59 Intake Total 740 / 2340 300 / 2640 Output Total 500 / 1300 525 / 1825 250 / 250 Balance 240 / 1040 -225 / 815 -250 / -250 Weight last 48 hrs Weight 115.212 kg Physical Exam Narrative: EXAM NARRATIVE: General exam no apparent distress Cardiovascular regular in rhythm without murmur Lungs clear Abdomen is soft, positive bowel sounds Extremities no cyanosis clubbing or edema Data : 03/13/20 03:20 03/13/20 03:20 Micro: Microbiology 03/12/20 15:24 Blood Culture - Preliminary Blood SPECIMEN COLLECTED 03/12/20 15:20 Blood Culture - Preliminary Blood SPECIMEN COLLECTED 03/11/20 16:50 Blood Culture - Preliminary Blood Gram positive cocci 03/11/20 16:55 Blood Culture - Preliminary Blood Gram positive cocci Other data: Transthoracic echo poor quality, normal EF, no severe mitral or tricuspid regurgitation. Chest x-ray no obvious infiltrate. Pacemaker noted. Official reading pending. A&P Assessment and plan (1) Respiratory failure: Consistent with acute hypoxic respiratory failure. Likely secondary to bacteremia.. Influenza a and B are negative. Blood cultures now positive, gram-positive organism awaiting ID and sensitivity. Repeat cultures have been drawn. Covid 19 testing is negative. CTA negative for pulmonary embolism. No obvious pneumonia on x-rays. Doxycycline was initiated upon admission for concern of bronchitis, COPD. Tick panel was ordered at that time. With blood cultures becoming positive, at this point doxycycline can be discontinued as tickborne illness is thought to be much less likely. Status: Acute (2) Dizziness: Resolved. Telemetry demonstrates paced rhythm, no other concerns. Echocardiogram results as above. Carotid duplex pending. Status: Acute (3) Diaphoresis: See investigations above. May be related to bacteremia as he now has gram-positive cocci in his blood. Status: Acute Additional A&P Information History of aortic valve replacement. Currently therapeutic on Coumadin. Goal INR is 2.5-3.5. Now with blood culture positive, concern would exist for endocarditis. Repeat blood culture negative so far. Currently on vancomycin. Doxycycline can be discontinued. If repeat cultures remain negative PICC line afternoon or Wednesday and likely discharge home. History of CHF, unspecified type. BNP and troponin not significantly elevated. EF preserved. Presumed history of diastolic heart failure. History of seizure disorder, continue Keppra Full code Coumadin will suffice for DVT prophylaxis. Pharmacy consulted for adjustment of dosing. No need for laboratory tomorrow other than INR. Attestations Medical Necessity Statement*: Needs continued hospitalization for IV antibiotics related to bacteremia. 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
[2020-03-13] MEDS: levETIRAcetam 500 mg Tablet 750 MG PO ×2 (10:25→17:22)
[2020-03-13] MEDS: aspirin 81 mg EC Tablet PO (10:26)
[2020-03-13] MEDS: FUROsemide 40 mg Tablet PO (10:27)
[2020-03-13] MEDS: metoprolol tartrate 50 mg Tablet PO ×2 (10:27→17:22)
[2020-03-13 12:50] LABS: Lyme AB Screen <0.90 index
[2020-03-13] MEDS: warfarin 5 mg Tablet PO (14:27)
--- NOTE | 2020-03-13 19:41 | PC.NURSE ---
Asked patient if he wanted a shower/bath. Patient said he already had one today.
--- NOTE | 2020-03-13 20:04 | PC.NURSE ---
Received report from AMANDA Bergman. Patient resting in bed. Patient verbalized plan for this week in regards to possible PICC placement and discharge on Wednesday. Patient verbalized complete understanding of everything. Patient denies needs or discomforts at this time. Assessment completed as documented. No distress observed.
[2020-03-14] VITALS (13 sets, daily range): BP systolic 136–143; BP diastolic 73–77; PULSE 57–71; RESP 16–28; TEMP 36.3–36.8; O2SAT 90–96
[2020-03-14] MEDS: albuterol 8 gm MDI 2 PUFF INHALATION ×4 (03:15→20:49)
[2020-03-14 04:21] LABS: INR 2.81 (0.8-1.2)
--- NOTE | 2020-03-14 07:54 | PM.PN ---
Subjective Subjective: Interval history: Liu reports he is doing well. There are no particular concerns. He denies any diaphoresis. He reports he feels great. Medications: Reviewed: Yes Vitals/I&O/Wt Last Vital Signs Temp 97.6 F 03/14/20 07:09 Pulse 71 03/14/20 07:09 Resp 26 H 03/14/20 07:09 BP 138/73 03/14/20 07:09 Pulse Ox 90 03/14/20 07:09 03/13/20 03/14/20 03/14/20 22:59 06:59 14:59 Intake Total 240 / 1840 650 / 2490 Output Total 1025 / 1825 550 / 2375 Balance -785 / 15 100 / 115 Physical Exam Narrative: EXAM NARRATIVE: General exam no apparent distress Cardiovascular regular in rhythm without murmur. Click noted Lungs clear Abdomen is soft, positive bowel sounds Extremities no cyanosis clubbing or edema Data : 03/13/20 03:20 03/13/20 03:20 Micro: Microbiology 03/12/20 15:24 Blood Culture - Preliminary Blood NEGATIVE TO DATE 03/12/20 15:20 Blood Culture - Preliminary Blood NEGATIVE TO DATE A&P Assessment and plan (1) Respiratory failure: Consistent with acute hypoxic respiratory failure. Likely secondary to bacteremia.. Influenza a and B are negative. Blood cultures now positive, gram-positive organism awaiting ID and sensitivity. Repeat cultures have been drawn and remain negative. Covid 19 testing is negative. CTA negative for pulmonary embolism. No obvious pneumonia on x-rays. Doxycycline was initiated upon admission for concern of bronchitis, COPD. Tick panel was ordered at that time. With blood cultures becoming positive, at this point doxycycline can be discontinued as tickborne illness is thought to be much less likely. Vancomycin has been continued. Status: Acute (2) Dizziness: Resolved. Telemetry demonstrates paced rhythm, no other concerns. Echocardiogram results as above. Carotid duplex no significant flow-limiting stenosis. Retrograde right vertebral artery is noted and possible stenosis at the origin of this is possible. Status: Acute (3) Diaphoresis: See investigations above. May be related to bacteremia as he now has gram-positive cocci in his blood. This is resolved. Status: Acute Additional A&P Information History of aortic valve replacement. Currently therapeutic on Coumadin. Goal INR is 2.5-3.5. Now with blood culture positive, concern would exist for endocarditis. Repeat blood culture negative so far. Currently on vancomycin. Doxycycline was discontinued. If repeat cultures remain negative PICC line afternoon or Wednesday and likely discharge home. History of CHF, unspecified type. BNP and troponin not significantly elevated. EF preserved. Presumed history of diastolic heart failure. History of seizure disorder, continue Keppra Full code Coumadin will suffice for DVT prophylaxis. Pharmacy consulted for adjustment of dosing. No need for laboratory tomorrow other than INR. Attestations Medical Necessity Statement*: Needs continued hospitalization for IV antibiotics awaiting identification and sensitivity of organism causing bacteremia. 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
[2020-03-14] MEDS: levETIRAcetam 500 mg Tablet 750 MG PO ×2 (09:38→17:21)
[2020-03-14] MEDS: metoprolol tartrate 50 mg Tablet PO ×2 (09:38→17:21)
[2020-03-14] MEDS: aspirin 81 mg EC Tablet PO (09:38)
[2020-03-14] MEDS: FUROsemide 40 mg Tablet PO (09:38)
[2020-03-14] MEDS: warfarin 5 mg Tablet PO (14:32)
--- NOTE | 2020-03-14 16:56 | PC.NURSE ---
Patient has had uneventful shift. Patient has been up ad barak to the side of the bed, chair, and ambulating in the hallway throughout the day. Patient has no complaints of SOB or pain. Blood culture results are still pending. Nurse to continue to monitor.
--- NOTE | 2020-03-14 19:25 | PC.NURSE ---
Received report from AMANDA Lizarraga. Patient resting in bed. Denies pain, discomforts or needs. Discussed plan for PICC line placement in the am for continued antibiotic therapy. Patient verbalized complete understanding of the plan. No distress observed.
[2020-03-14 20:54] LABS: Vancomycin Trough 19.1 ug/mL (10-15)
--- NOTE | 2020-03-14 21:08 | PC.NURSE ---
Current vanc trough of 19.1 reported to Ap in Pharmacy. Received ok to run current dose of Vancomycin.
[2020-03-15] VITALS (10 sets, daily range): BP systolic 142–159; BP diastolic 73–87; PULSE 60–82; RESP 16–29; TEMP 36.4–36.7; O2SAT 90–96
[2020-03-15] MEDS: albuterol 8 gm MDI 2 PUFF INHALATION ×2 (02:40→08:01)
[2020-03-15 03:53] LABS: Basophils % 0.3 %; Eosinophils # 0.3 10^3/uL (0.0-0.8); Eosinophils % 2.9 %; Hematocrit 47.7 % (42.0-52.0); Lymphocytes % 21.7 %; Mean Corpuscular HGB Conc 31.4 g/dL (30.0-36.0); Mean Corpuscular Hemoglobin 28.6 pg (28.0-34.0); Mean Platelet Volume 10.6 fL (7.4-10.4); Monocytes # 0.9 10^3/uL (0.2-0.9); Monocytes % 9.7 %; Neutrophils # 6.02 10^3/uL (1.8-7.7); Neutrophils % 65.1 %; Nucleated Red Blood Cells % 0 %; Platelet Count 265 10^3/cmm (130-400); Red Blood Count 5.24 10^6/uL (4.1-5.3); Red Cell Distribution Width 13.6 % (12.1-15.1); White Blood Count 9.3 10^3/uL (4.0-10.0)
[2020-03-15 04:10] LABS: INR 2.84 (0.8-1.2)
[2020-03-15 04:20] LABS: Anion Gap 12.3 (5-19); Blood Urea Nitrogen 23 mg/dL (8-23); Calcium 9.2 mg/dL (8.5-10.5); Carbon Dioxide 29 mmol/L (22-29); Chloride 101 mmol/L (98-107); Glucose 94 mg/dL (65-115); Osmolality Calculated 282 mOsm/kg (285-295); Potassium 4.3 mmol/L (3.5-5.1); Sodium 138 mmol/L (136-145)
--- NOTE | 2020-03-15 07:48 | PC.NURSE ---
Consent obtained for PICC line.
[2020-03-15] MEDS: FUROsemide 40 mg Tablet PO (09:30)
[2020-03-15] MEDS: metoprolol tartrate 50 mg Tablet PO ×2 (09:30→17:07)
[2020-03-15] MEDS: levETIRAcetam 500 mg Tablet 750 MG PO ×2 (09:30→17:07)
[2020-03-15] MEDS: aspirin 81 mg EC Tablet PO (09:30)
--- NOTE | 2020-03-15 11:04 | PC.NURSE ---
Patient to PACU for PICC line at this time. Patient and VS stable.
--- NOTE | 2020-03-15 11:38 | XR_ITS ---
WS: [id number] PORTABLE CHEST HISTORY: PICC PLACEMENT COMPARISON: 03/12/2020 RIGHT PICC line with tip in the distal SVC is in good position. Hyperexpanded lungs with emphysema. No pneumonia. No pleural effusion or pneumothorax. Cardiac size: Mildly enlarged cardiac silhouette. Mediastinum/Aorta: Moderate atherosclerosis aorta. Prior dual lead LEFT cardiac pacer. No osseous abnormality seen. XR/XR chest 1V portable [id number] IMPRESSION: Satisfactory position RIGHT PICC line.
--- NOTE | 2020-03-15 12:00 | PM.DCS ---
Discharge Providers Date of Admission: 03/11/20 16:46 Date of Discharge: March 15, 2020 Attending Provider at Admission: Juanjo Morales MD Attending Provider at Discharge: Juanjo Morales MD Primary Care Provider: Dakota Reynoso Diagnoses at Discharge Discharge Diagnosis (1) Respiratory failure: Status: Acute (2) Dizziness: Status: Acute (3) Diaphoresis: Status: Acute Reason for Visit Reason for Visit: poss stroke last week Hospital Course Hospital Course: Liu is a 79-year-old white male who presented to the emergency department with diaphoresis, decreased energy, slurred speech. He was noted to have some hypoxia. Initial laboratory studies were not revealing. Transthoracic echo was of poor quality. Carotid duplex no flow-limiting lesions. CTA demonstrated no pulmonary embolism. Head CT nothing acute. Chest x-ray no pneumonia. COVID 19 test ultimately negative. Blood cultures returned positive for gram-positive cocci soon after admission. Blood cultures, all bottles, grew coag negative staph as well as staph epidermidis in both bottles. Patient was placed on vancomycin shortly after blood cultures turn positive, and this was continued throughout his hospital stay. Repeat cultures were negative. Patient's symptomatology all went away. At time of discharge full results of all cultures were pending but patient very much wanted to go home. Sensitivities on both bacteria appear to show excellent sensitivity to vancomycin which was also being used in the hospital so we will arrange for PICC line and discharged home on vancomycin with home health today. Physical Exam Narrative: EXAM NARRATIVE: General exam is no apparent distress Cardiovascular regular rate and rhythm without murmur Lungs clear Abdomen is soft with positive bowel sounds Extremities no cyanosis clubbing or edema Discharge Data Data Completed and Pending: Completed Studies During Hospitalization Category Date Time Status CT angio chest PE protcl [id number] Urge nt Cat Scan 03/11/20 13:[address] head wo con* [id number] Urgent Cat Scan 03/11/20 11:59 Completed XR chest 1V ruy ble [id number] Routine Exams 03/12/20 14:19 Completed XR chest 1V ruy ble [id number] Urgent Exams 03/11/20 11:59 Completed CV carotid duplex BI* [id number] Routine Ultrasound 03/12/20 07:00 Completed CV echo complete* [id number] Routine Ultrasound 03/12/20 07:00 Completed Pending at discharge Category Date Time Status XR chest 1V ruy ble [id number] Routine Exams 03/15/20 11:38 Ordered Blood Culture Sta t Lab 03/11/20 16:50 Results Blood Culture Sta t Lab 03/12/20 15:24 Results Prothrombin Time INR AM LABS Lab 03/16/20 04:00 Ordered Prothrombin Time INR AM LABS Lab 03/17/20 04:00 Ordered Prothrombin Time INR AM LABS Lab 03/18/20 04:00 Ordered Tick Panel Routin e Lab 03/11/20 12:08 Results Labs from last 24 hours 03/15/20 03/15/20 03/15/20 03:18 03:18 03:18 WBC 9.3 RBC 5.24 Hgb 15.0 Hct 47.7 MCV 91.0 MCH 28.6 MCHC 31.4 RDW 13.6 Plt Count 265 MPV 10.6 H Neut % (Auto) 65.1 Lymph % (Auto) 21.7 [place] % (Auto) 9.7 Eos % (Auto) 2.9 Baso % (Auto) 0.3 Neut # (Auto) 6.02 Lymph # (Auto) 2.0 [place] # (Auto) 0.9 Eos # (Auto) 0.3 Baso # (Auto) 0.0 Nucleated RBC % (a uto) 0 Nucleated RBCs # 0.0 PT 30.90 H INR 2.84 H Sodium 138 Potassium 4.3 Chloride 101 Carbon Dioxide 29 Anion Gap 12.3 BUN 23 Creatinine 1.5 H Glucose 94 Calculated Osmolal ity 282 L Calcium 9.2 Vancomycin Trough 03/14/20 19:56 WBC RBC Hgb Hct MCV MCH MCHC RDW Plt Count MPV Neut % (Auto) Lymph % (Auto) [place] % (Auto) Eos % (Auto) Baso % (Auto) Neut # (Auto) Lymph # (Auto) [place] # (Auto) Eos # (Auto) Baso # (Auto) Nucleated RBC % (a uto) Nucleated RBCs # PT INR Sodium Potassium Chloride Carbon Dioxide Anion Gap BUN Creatinine Glucose Calculated Osmolal ity Calcium Vancomycin Trough 19.1 H Vitals: Last Vital Signs Temp 97.7 F 03/15/20 03:38 Pulse 78 03/15/20 08:06 Resp 16 03/15/20 08:04 BP 150/73 03/15/20 08:00 Pulse Ox 94 03/15/20 08:04 Discharge Plan Discharge Patient Disposition: Home Health Service Condition: Stable Prescriptions: New vancomycin in 0.9 % sodium chl 2 gram/500 mL solution 2 gm IVP Q18H 38 Days Qty: 35401 RF: 0 Continued aspirin [Adult Low Dose Aspirin] 81 mg tablet,delayed release (DR/EC) 81 mg PO DAILY RF: 0 metoprolol tartrate 100 mg tablet 50 mg PO BID RF: 0 furosemide 40 mg tablet 40 mg PO DAILY RF: 0 warfarin 5 mg tablet 5 mg PO DIRECTED RF: 0 levetiracetam [Keppra] 750 mg tablet 750 mg PO BID RF: 0 Discharge Orders: Discharge Order (Routine); Ordered 03/15/20 Ordered By: Juanjo Morales Referrals: Dakota Reynoso [Primary Care Provider] - 4-7 days (Follow-up of bacteremia,) Discharge Diet: Cardiac Discharge Activity: Increase activity as tolerated Activity Restrictions/Additional Instructions: Take all medicine as prescribed Home health agency to monitor vancomycin troughs prior to the third dose. CBC, CMP prior to the third dose. Referral to cardiology here in regards to follow-up of bacteremia and history of aortic valve replacement and pacemaker. Will need follow-up in 3 to 4 weeks. INR in 3 days as well. 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
[2020-03-15] MEDS: warfarin 5 mg Tablet PO (14:15)
[2020-03-15 17:20] LABS: RMSF IGG NOT DETECTED; RMSF IGM NOT DETECTED
--- NOTE | 2020-03-15 17:50 | PC.NURSE ---
Discharge instructions given per the physician's order. Patient verbalized understanding of the information and did not have any further questions. PICC line dressing CDI.
[2020-03-15 22:00] LABS: E. Chaffeensis AB IGG <1:64; E. Chaffeensis AB IGM <1:20
== END 2020-03-15 17:57 | disposition home health service (06) | DRG 189 ==
LOC: ER 16:09 → CSU 17:39
PROVIDERS: Emergency Medicine; Admitting Provider Internal Medicine; Family Provider Internal Medicine; PCP Internal Medicine; Visit Provider Internal Medicine
DX: J96.01 Acute respiratory failure with hypoxia (principal); I50.32 Chronic diastolic (congestive) heart failure; I11.0 Hypertensive heart disease with heart failure; G40.909 Epilepsy, unspecified, not intractable, without status epilepticus; Z95.2 Presence of prosthetic heart valve; Z95.0 Presence of cardiac pacemaker; Z87.891 Personal history of nicotine dependence; R61 Generalized hyperhidrosis; Z79.01 Long term (current) use of anticoagulants; B95.8 Unspecified staphylococcus as the cause of diseases classified elsewhere; Z79.82 Long term (current) use of aspirin; R42 Dizziness and giddiness
CPT/HCPCS: 12345; 36415; 36569; 36600; 70450; 71045; 71275; 80048; 80053; 80202; 81001; 81003; 82803; 83880; 84443; 84484; 85025; 85610; 86618; 86666; 86757; 87040; 87077; 87186; 87205; 87635; 87804; 93005; 93306; 93880; 94640; 99284; J1200; J1720; J3370; J3535; J7040; Q9967

== ENCOUNTER 2020-04-03 05:51 | Outpatient (RCR) | payer OTHER, SELFPAY ==
[2020-03-16 06:33] VITALS: BP 144/89; PULSE 66; RESP 18; TEMP 36.6; O2SAT 92; BMI 30.9
[2020-03-16 17:58] VITALS: BP 97/60; PULSE 70; RESP 18; TEMP 36.6; O2SAT 94
[2020-03-17 06:16] VITALS: BP 154/80; PULSE 77; RESP 18; TEMP 36.2; O2SAT 93
[2020-03-17 16:23] LABS: Basophils # 0.1 10^3/uL (0.0-0.1); Basophils % 0.5 %; Eosinophils # 0.3 10^3/uL (0.0-0.8); Eosinophils % 3.1 %; Hematocrit 49.3 % (42.0-52.0); Hemoglobin 15.6 g/dL (11.7-16.6); Lymphocytes # 2.4 10^3/uL (0.8-4.8); Mean Corpuscular HGB Conc 31.6 g/dL (30.0-36.0); Mean Corpuscular Hemoglobin 28.1 pg (28.0-34.0); Mean Corpuscular Volume 88.8 fL (80-94); Mean Platelet Volume 9.9 fL (7.4-10.4); Monocytes # 0.9 10^3/uL (0.2-0.9); Neutrophils % 64.2 %; Nucleated Red Blood Cells % 0 %; Platelet Count 305 10^3/cmm (130-400); Red Blood Count 5.55 10^6/uL (4.1-5.3); Red Cell Distribution Width 13.4 % (12.1-15.1); White Blood Count 10.3 10^3/uL (4.0-10.0)
[2020-03-17 16:58] LABS: Alanine Aminotransferase 18 U/L (0-41); Albumin Level 4.4 g/dL (3.5-5.2); Alkaline Phosphatase 71 IU/L (40-130); Anion Gap 16.1 (5-19); Aspartate Amino Transferase 27 U/L (0-40); Blood Urea Nitrogen 22 mg/dL (8-23); Calcium 9.4 mg/dL (8.5-10.5); Carbon Dioxide 25 mmol/L (22-29); Chloride 100 mmol/L (98-107); Globulin 2.9 g/dL (1.3-4.6); Glucose 87 mg/dL (65-115); Osmolality Calculated 280 mOsm/kg (285-295); Potassium 4.1 mmol/L (3.5-5.1); Sodium 137 mmol/L (136-145); Total Bilirubin 0.5 mg/dL (0.15-1.2); Total Protein 7.3 g/dL (6.6-8.7)
[2020-03-17 17:16] LABS: Vancomycin Trough 29.8 ug/mL (10-15)
[2020-03-17 17:22] VITALS: BP 136/68; PULSE 77; RESP 17; TEMP 36.4; O2SAT 93
[2020-03-18 05:48] VITALS: BP 160/95; PULSE 70; RESP 18; TEMP 36.6; O2SAT 93
--- NOTE | 2020-03-18 14:10 | PC.SOCIAL ---
[facility] await call back on [facility] since this am. Called [facility] since no return call received and she indicates they have an auth pending start date of Wednesday03/16/2020. She will send me a copy of auth once finalized through [employer]. Provider has signed off. This will be for a total of 36 days outpatient twice daily. 6a and 6p. Called Libby in [facility] scheduling. She indicates they have him on schedule through Wed so far once auth is sent to her she will upload it into record and extend the visits to outpatient. If have not heard back by tomorrow will follow up with December on auth per her should be later today or in am when verification received.
[2020-03-19 06:00] VITALS: BP 164/115; PULSE 79; RESP 18; TEMP 36.2; O2SAT 95
--- NOTE | 2020-03-19 07:35 | SUR.PREOP ---
PATIENT DC'ED IN STABLE CONDITION .PICC LINE FLUSHED WITH STERILE SALINE FLUSH
[2020-03-20 06:42] VITALS: BP 144/74; PULSE 70; RESP 18; TEMP 36.3; O2SAT 95
[2020-03-21 06:18] VITALS: BP 166/66; PULSE 64; RESP 18; TEMP 36.6; O2SAT 93
[2020-03-21 06:35] LABS: Anion Gap 15.3 (5-19); Blood Urea Nitrogen 16 mg/dL (8-23); Calcium 8.8 mg/dL (8.5-10.5); Carbon Dioxide 26 mmol/L (22-29); Chloride 101 mmol/L (98-107); Glucose 95 mg/dL (65-115); Osmolality Calculated 282 mOsm/kg (285-295); Potassium 4.3 mmol/L (3.5-5.1); Sodium 138 mmol/L (136-145)
[2020-03-21 14:26] LABS: Vancomycin Trough 17.9 ug/mL (10-15)
[2020-03-22 06:02] VITALS: BP 173/88; PULSE 68; RESP 18; TEMP 36.6; O2SAT 94
[2020-03-23 06:19] VITALS: BP 161/92; PULSE 90; RESP 18; TEMP 35.9; O2SAT 95
[2020-03-24 06:20] VITALS: BP 173/87; PULSE 73; RESP 20; TEMP 36.1; O2SAT 94
[2020-03-24 06:38] LABS: INR 2.14 (0.8-1.2)
[2020-03-24 07:45] LABS: Anion Gap 13.8 (5-19); Blood Urea Nitrogen 19 mg/dL (8-23); Carbon Dioxide 28 mmol/L (22-29); Chloride 103 mmol/L (98-107); Glucose 97 mg/dL (65-115); Osmolality Calculated 286 mOsm/kg (285-295); Potassium 4.8 mmol/L (3.5-5.1); Sodium 140 mmol/L (136-145)
[2020-03-24 07:47] LABS: Vancomycin Trough 36.1 ug/mL (10-15)
[2020-03-25 06:13] VITALS: BP 160/87; PULSE 69; RESP 20; TEMP 35.9; O2SAT 93
[2020-03-25 06:49] LABS: Vancomycin Trough 12.9 ug/mL (10-15)
[2020-03-26 06:15] VITALS: BP 165/97; PULSE 69; RESP 18; TEMP 36.5; O2SAT 92
--- NOTE | 2020-03-26 09:46 | PC.SOCIAL ---
Dr Jemima Morales wanted to make sure that the patient's INR is being followed by someone. [facility] usually follows the INR. He is in transition with being set up with provider. Patient indicates he took a copy of INR to [facility] yesterday. We discussed this may need to be adjusted to stay within in therapeutic range. Patient indicates he does not plan on adjusting his medication even if the INR is off. He had this all messed up previously he indicates when provider tried to adjust. He plans on continuing current dose of Coumadin. This nurse has tried to call [facility] and cant get through. Updated patient that primary really needs to be checking INR and making any adjustments needed and to he needs to establish with provider as soon as possible so the IV monitoring can be done by PCP not Hospitalists. Pt indicates he will try to go by there again today to discuss. This nurse faxed records including recent labs with INR and request an appt be arranged [facility] so they can follow IV abx as outpatient and let them know provider here is not making adjustments to INR. Fax confirmation received that this was sent successfully.
[2020-03-27 06:00] VITALS: BP 137/73; PULSE 71; RESP 18; TEMP 35.7; O2SAT 93
[2020-03-28 06:35] VITALS: BP 176/90; PULSE 69; RESP 18; TEMP 36.1; O2SAT 95
[2020-03-29 06:19] VITALS: BP 165/87; PULSE 63; RESP 18; TEMP 36.2; O2SAT 93
[2020-03-30 06:03] VITALS: BP 151/81; PULSE 62; RESP 18; TEMP 36.1; O2SAT 93; BMI 30.9
[2020-03-31 06:50] VITALS: BP 139/83; PULSE 61; RESP 18; TEMP 36.1; O2SAT 93
[2020-04-01 05:57] VITALS: BP 159/79; PULSE 74; RESP 18; TEMP 36.1; O2SAT 93
[2020-04-02 06:21] VITALS: BP 165/88; PULSE 87; RESP 18; TEMP 36.5; O2SAT 93
[2020-04-02 07:31] LABS: Sodium 137 mmol/L (136-145)
[2020-04-02 07:32] LABS: Blood Urea Nitrogen 25 mg/dL (8-23); Calcium 8.9 mg/dL (8.5-10.5); Carbon Dioxide 27 mmol/L (22-29); Chloride 99 mmol/L (98-107); Glucose 105 mg/dL (65-115); Osmolality Calculated 281 mOsm/kg (285-295)
[2020-04-03 06:23] VITALS: BP 158/83; PULSE 61; RESP 18; TEMP 36.3; O2SAT 98
[2020-04-04 06:14] VITALS: BP 122/79; PULSE 83; RESP 18; TEMP 36.3; O2SAT 92
[2020-04-05 06:37] VITALS: BP 136/76; PULSE 72; RESP 18; TEMP 36.3; O2SAT 92
== END 2020-04-05 23:59 | disposition home or self-care (01) ==
LOC: GILAB 05:51
PROVIDERS: PCP Internal Medicine; Visit Provider Internal Medicine
DX: Z45.2 Encounter for adjustment and management of vascular access device (principal)
CPT/HCPCS: 15852; 36415; 36569; 36592; 80048; 80053; 80202; 82565; 85025; 85610; 96365; 96366; 96367; J3370; J7040; J7050

== ENCOUNTER 2020-04-06 06:05 | Outpatient (RCR) | payer OTHER, SELFPAY ==
[2020-04-06 06:18] VITALS: BP 111/58; PULSE 76; RESP 18; TEMP 36.6; O2SAT 91; BMI 31.1
--- NOTE | 2020-04-07 05:54 | SUR.PHASEII ---
Talked with Elle in Pharmacy. She stated that patient is stable and doesn't need a vanc trough until 04/10/20.
[2020-04-07 06:00] VITALS: BP 157/92; PULSE 75; RESP 18; TEMP 36.3; O2SAT 95
[2020-04-08 06:05] VITALS: BP 149/76; PULSE 73; RESP 18; TEMP 35.4; O2SAT 93
[2020-04-09 05:55] VITALS: BP 159/99; PULSE 71; RESP 18; TEMP 36.1; O2SAT 94
--- NOTE | 2020-04-09 07:35 | SUR.OPER ---
RIGHT UPPER ARM CIRCUMFERENCE AT PICC LINE INSERTION POINT 35cm.
[2020-04-10 05:56] VITALS: BP 137/87; PULSE 66; RESP 18; TEMP 36.1; O2SAT 93
[2020-04-10 06:57] LABS: Blood Urea Nitrogen 22 mg/dL (8-23); Carbon Dioxide 27 mmol/L (22-29); Chloride 100 mmol/L (98-107); Glucose 91 mg/dL (65-115); Osmolality Calculated 280 mOsm/kg (285-295); Sodium 137 mmol/L (136-145)
[2020-04-11 06:17] VITALS: BP 148/101; PULSE 65; RESP 18; TEMP 35.8; O2SAT 94
[2020-04-11 07:01] LABS: Vancomycin Trough 13.8 ug/mL (10-15)
[2020-04-12 05:57] VITALS: BP 180/86; PULSE 73; RESP 18; TEMP 36.2; O2SAT 94
[2020-04-13 07:41] VITALS: BP 129/85; PULSE 75; RESP 18; TEMP 36.2; O2SAT 92
[2020-04-14 06:09] VITALS: BP 143/87; PULSE 76; RESP 16; TEMP 36; O2SAT 92
[2020-04-15 06:01] VITALS: BP 165/81; PULSE 66; RESP 18; TEMP 36.3; O2SAT 94
[2020-04-16 06:12] VITALS: BP 150/61; PULSE 61; RESP 18; TEMP 36.1; O2SAT 93
[2020-04-17 06:56] VITALS: BP 115/70; PULSE 57; RESP 18; TEMP 36; O2SAT 92
[2020-04-18 05:55] VITALS: BP 134/77; PULSE 85; RESP 16; TEMP 36.3; O2SAT 93
--- NOTE | 2020-04-18 09:00 | PC.SOCIAL ---
Lacy from Outpatient called to clarify next steps for patient after Sundays dose that should finish out the treatment ordered initially. Verified with Dr Morales and he indicates okay to stop treatment and pull PICC after Wednesday04/21/2020 dose.
[2020-04-19 06:00] VITALS: BP 131/69; PULSE 71; RESP 18; TEMP 36.2; O2SAT 93
[2020-04-20 06:21] VITALS: BP 145/85; PULSE 71; RESP 18; TEMP 36.3; O2SAT 94
== END 2020-05-06 23:59 | disposition home or self-care (01) ==
LOC: GILAB 06:05
PROVIDERS: PCP Internal Medicine; Visit Provider Internal Medicine
DX: R78.81 Bacteremia (principal)
CPT/HCPCS: 15852; 36592; 80048; 80202; 96365; 96366; J3370; J7040